=== PATIENT | male | born 1995 | race Caucasian/White ===

== ENCOUNTER 2019-08-08 17:11 | Emergency (ER) | payer MEDICAID ==
[~2019-08-08] VITALS: Ht 162.6 cm; Wt 57.2 kg
--- NOTE | 2019-08-08 17:35 | NUR ---
12 lead EKG DONE, SHOWED IT TO DR. ROSARIO. NO BED YET, PT AMBULATES TO LOBBY WITH STABLE CONDITION.
--- NOTE | 2019-08-08 18:18 | NUR ---
PATIENT AMBULATED TO BED 11
--- NOTE | 2019-08-08 19:15 | NUR ---
RECEIVED BEDSIDE REPORT BY PATRICIA MINOR
--- NOTE | 2019-08-08 19:15 | NUR ---
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 PT WAS BEEN SEEN IN [facility] AND PCP, REPORTS NORMAL RESULTS. PT AWAKE AND ALERT, SKIN NORMAL COLOR WARM AND DRY, RR EVEN AND UNLABORED. LUNG SOUNDS CLEAR BL. HR EVEN AND REGULAR. HX ASTHMA
--- NOTE | 2019-08-08 19:33 | NUR ---
X RAY AT BEDSIDE
--- NOTE | 2019-08-08 19:43 | NUR ---
LAB AT BEDSIDE
[2019-08-08 20:02] LABS: BASOPHILS % (AUTO) 0.4 % (0.0-2.0); EOSINOPHILS # (AUTO) 0.4 K/uL (0-0.4); EOSINOPHILS % (AUTO) 3.8 % (0.0-4.0); HEMATOCRIT 44.3 % (36-52); LYMPHOCYTES # (AUTO) 2.5 K/uL (2.0-11.5); MEAN CORPUSCULAR HEMOGLOBIN 29 pg (27-31); MEAN CORPUSCULAR HGB CONC 34 g/dL (33-37); MEAN CORPUSCULAR VOLUME 85.4 fL (80-94); MONOCYTES # (AUTO) 0.8 K/uL (0.8-1.0); MONOCYTES % (AUTO) 8.1 % (1.7-9.3); NEUTROPHILS # (AUTO) 6.6 K/uL (1.8-7.7); NEUTROPHILS % (AUTO) 63.7 % (42.2-75.2); PLATELET COUNT (AUTO) 313 K/uL (140-450); RED BLOOD CELL COUNT(AUTO) 5.19 MIL/uL (4.20-6.10); RED CELL DISTRIBUTION WIDTH 12.7 % (11.6-13.7); WHITE BLOOD COUNT (AUTO) 10.3 K/uL (4.8-10.8)
[2019-08-08 20:23] LABS: ANION GAP 9.5 (8-16); CARBON DIOXIDE 32.4 mmol/L (21-32); CREATININE 0.9 mg/dL (0.7-1.3); POTASSIUM 3.9 mmol/L (3.5-5.1)
[2019-08-08 20:30] LABS: BARBITURATE, URINE NEG. ng/ml (NEG <=200); BENZODIAZEPINE, URINE NEG. ng/mL (NEG <=200); CANNABINOID, URINE NEG. ng/mL (NEG <=50); COCAINE, URINE NEG. ng/mL (NEG <=300); OPIATE, URINE NEG. ng/mL (NEG <=2000); PHENCYCLIDINE SCREEN,URINE NEG. ng/mL (NEG <=25)
[2019-08-08 20:37] LABS: ALBUMIN 4.8 g/dL (3.4-5.0); FREE T4 (FREE THYROXINE) 1.17 ng/dL (0.76-1.46); THYROID STIMULATING HORMONE 0.85 uIU/mL (0.34-3.74); TOTAL BILIRUBIN 0.6 mg/dL (0.0-1.0)
[2019-08-08 21:14] LABS: CREATINE KINASE MB 0.3 ng/mL (0-3.6)
[2019-08-08 21:59] VITALS: BP 118/63
--- NOTE | 2019-08-08 21:59 | NUR ---
Patient discharged with v/s stable. Written and verbal after care instructions given and explained. Patient alert, oriented and verbalized understanding of instructions. Ambulatory with steady gait. All questions addressed prior to discharge. ID band removed. Patient advised to follow up with PMD. Rx of FLEXERIL given. Patient educated on indication of medication including possible reaction and side effects. Opportunity to ask questions provided and answered.
== END 2019-08-08 21:59 | disposition home or self-care (01) ==
LOC: MED 17:11
DX: R07.89 Other chest pain (principal); J45.909 Unspecified asthma, uncomplicated
CPT/HCPCS: 36415; 71045; 80053; 80305; 82550; 82553; 83690; 84439; 84443; 84484; 85025; 93005; 99284